=== PATIENT | male | born 1950 | race Caucasian/White ===

== ENCOUNTER → 2016-11-24 | Outpatient (CLI) | payer BC | END | disposition home or self-care (01) | LOC: GMAB 10:46 | PROVIDERS: ATTEND Family Medicine | DX: K76.0 Fatty (change of) liver, not elsewhere classified (principal) ==

== ENCOUNTER → 2018-05-09 | Outpatient (CLI) | payer BC | LOC: GMAE 14:11 | PROVIDERS: ATTEND General Practice | DX: K76.0 Fatty (change of) liver, not elsewhere classified (principal) ==

== ENCOUNTER → 2018-05-12 | Outpatient (CLI) | payer BC, MEDICARE ==
--- NOTE | 2018-05-12 09:26 | US ---
EXAM DESCRIPTION: Aorta CLINICAL HISTORY: 67 years Male, abdominal aortic aneurysm screening. COMPARISON: CT abdomen July 27, 2016 . TECHNIQUE: Multiplanar grayscale and Doppler sonographic images of the abdominal aorta obtained. FINDINGS: The proximal, mid, and distal abdominal aortic diameters measure up to 2.0, 2.3 and 2.1 cm respectively. IMPRESSION: 1. No evidence of abdominal aortic aneurysm. Electronically signed by: Bhupendra Mckenzie MD 05/12/2018 9:24 AM CDT
--- NOTE | 2018-05-12 09:31 | US ---
EXAM DESCRIPTION: Liver CLINICAL HISTORY: 67 years Male, K76.0 COMPARISON: CT abdomen pelvis July 27, 2016. TECHNIQUE: Multiple transverse and longitudinal static sonographic images through the right upper quadrant of the abdomen were obtained. FINDINGS: Visualized portions of the pancreas appear normal. The liver demonstrates mild increased echogenicity with no intrahepatic biliary ductal dilatation. No focal masses are identified sonographically. Focal hypoechoic area near the the caudate lobe likely represents focal fatty sparing. The portal vein is patent. No evidence of ascites. The gallbladder is surgically absent. The common duct is nondilated and measures 0.6 cm. The right kidney measures 10.0 x 5.1 x 5.9 cm.. No hydronephrosis or perinephric fluid collections. IMPRESSION: 1. Mildly increased echogenicity could represent fatty infiltration versus parenchymal liver disease. Focal hypoechoic area near the caudate lobe likely represents focal fatty sparing. No other lesions identified. Electronically signed by: hBupendra Mckenzie MD 05/12/2018 9:30 AM CDT
== END ==
LOC: US 08:00
PROVIDERS: ATTEND Family Medicine
DX: K76.0 Fatty (change of) liver, not elsewhere classified (principal); Z13.89 Encounter for screening for other disorder

== ENCOUNTER → 2018-06-02 | Outpatient (CLI) | payer BC, MEDICARE ==
--- NOTE | 2018-06-02 09:42 | CT ---
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 Multiplanar reconstructions were provided. This exam was performed according to our departmental dose-optimization program, which includes automated exposure control, adjustment of the mA and/or kV according to patient size and/or use of iterative reconstruction technique. FINDINGS: Lungs: Moderate emphysema. Left apical linear and nodular opacity measuring up to 2.5 cm, favored to represent atelectasis/scarring given the morphology but indeterminate. Several additional 2 to 3 mm pulmonary nodules in both lungs. No pleural effusion. Mediastinum: Limited evaluation due to lack of IV contrast. There is a large hiatal hernia. The heart is normal in size. Coronary artery atherosclerosis. The trachea is unremarkable. Lymph nodes: There are no pathologically enlarged lymph nodes by CT size criteria. Chest wall and lower neck: No significant finding. Bones: There is no destructive osseous lesion Upper abdomen: Moderate atherosclerosis in the upper abdominal aorta. Cholecystectomy clips. IMPRESSION: 1. Emphysema with 2.5 cm left apical nodular opacity, indeterminate but favored to represent atelectasis/scarring. PET/CT recommended for definitive characterization. 2. Coronary artery atherosclerosis. 3. Large hiatal hernia. 4. Other findings as above. Electronically signed by: Wagner Elizondo MD 06/02/2018 9:40 AM CDT
--- NOTE | 2018-06-09 10:34 | CT ---
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 Multiplanar reconstructions were provided. This exam was performed according to our departmental dose-optimization program, which includes automated exposure control, adjustment of the mA and/or kV according to patient size and/or use of iterative reconstruction technique. FINDINGS: Lungs: Moderate emphysema. Left apical linear and nodular opacity measuring up to 2.5 cm, favored to represent atelectasis/scarring given the morphology but indeterminate. Several additional 2 to 3 mm pulmonary nodules in both lungs. No pleural effusion. Mediastinum: Limited evaluation due to lack of IV contrast. There is a large hiatal hernia. The heart is normal in size. Coronary artery atherosclerosis. The trachea is unremarkable. Lymph nodes: There are no pathologically enlarged lymph nodes by CT size criteria. Chest wall and lower neck: No significant finding. Bones: There is no destructive osseous lesion Upper abdomen: Moderate atherosclerosis in the upper abdominal aorta. Cholecystectomy clips. IMPRESSION: 1. Emphysema with 2.5 cm left apical nodular opacity, indeterminate but favored to represent atelectasis/scarring. PET/CT recommended for definitive characterization. 2. Coronary artery atherosclerosis. 3. Large hiatal hernia. 4. Other findings as above. Electronically signed by: Wagner Elizondo MD 06/02/2018 9:40 AM CDT
== END ==
LOC: CT 09:00
PROVIDERS: ATTEND Family Medicine
DX: Z87.891 Personal history of nicotine dependence (principal); J43.9 Emphysema, unspecified; I25.10 Atherosclerotic heart disease of native coronary artery without angina pectoris; K44.9 Diaphragmatic hernia without obstruction or gangrene

== ENCOUNTER → 2018-06-07 | Outpatient (CLI) | payer BC, MEDICARE | LOC: GMAE 14:53 | PROVIDERS: ATTEND Family Medicine | DX: Z11.59 Encounter for screening for other viral diseases (principal) ==

== ENCOUNTER → 2018-09-18 | Outpatient (CLI) | payer BC, MEDICARE, OTHER ==
--- NOTE | 2018-09-19 08:43 | CT ---
Procedure: CT LUNG SCREENING Exam Date: 09/18/2017. Ordering Provider: Jorge Rehman Clinical Indication: HX OF TOBACCO USE This patient meets eligibility criteria for low-dose CT lung cancer screening. Comparison: CT low dose screening lung examination 06/02/2018. Technique: Using a multislice scanner, sequential helical axial imaging was obtained in the thorax, 2.5 mm thickness, 2.5 mm separation, from the level of the thoracic inlet through the lung bases without IV contrast. A low dose protocol was utilized: CTDI: 1.75 mGy. 120. kVp. 45 mA. 2D sagittal and coronal reconstructed images, 6.0 mm thickness, were obtained. This exam was performed according to our departmental dose optimization program which includes use of automated exposure control, adjustment of the mA and/or kV according to patient size and/or use of iterative reconstruction technique. Nodule measurements under 10 mm are given as mean value of 3 axes diameters. FINDINGS: Lungs and large airways: Asymmetrically enlarged density in the left apex remains stable at 2.5 cm greatest diameter. More likely to represent pleural thickening than a true pulmonary nodule. Small nodular density in the posterior right apex measures approximately 7 cm stable since the prior study and also more likely to represent apical pleural thickening the MA tube pulmonary nodule. Bilateral pulmonary blebs in a centrilobular pattern are again seen and stable. No new abnormal nodule mass or infiltrate bilaterally. Stable small groundglass densities in the posterior recess of the left lower lobe stable small 3 mm calcified granuloma right lower lobe.. Pleura: Bilateral smaller apical pleural densities are also stable. No new effusion or pneumothorax bilaterally. Mediastinum and gurmeet: evaluation limited by low dose technique and lack of IV contrast. Negative. Heart and great vessels: Atherosclerotic calcifications in the proximal brachiocephalic vessels, aorta, and coronary arteries. Stable soft tissue density anterior to the ascending aorta. Chest wall, lower neck, axillae: Evaluation also limited by same factors as described above. Negative. Upper abdomen: Fatty pancreas. No free fluid or free air in the included peritoneal. Prior cholecystectomy. Abdominal aortic calcifications. Osseous structures: Evaluation limited by low dose MIP technique. Negative. IMPRESSION: 1. Stable bilateral apical pleural thickening and pleural nodular densities larger on the left than right. No new nodules masses or infiltrates bilaterally. Smaller subpleural nodules not clinically significant. [facility] Best Practice guidelines are for one year follow-up. Please see below for Lung RADS category and FOLLOW-UP.* *Lung RADS category CATEGORY 2- Nodules with a very low likelihood (less than 1%) of becoming a clinically active cancer due to size or lack of growth. Nodules: Solid or part solid nodule(s) less than 6mm, new solid nodule less than 4mm. Ground glass nodule(s) less than 20mm or unchanged or slow growing ground glass nodule 20mm or greater. Cat 3 or 4 nodule unchanged for 3 or more months. FOLLOW-UP: Continue annual screening with a Low Dose Chest CT in 12 months for re-evaluation. Electronically signed by: Osmany Stewart MD 09/19/2018 8:41 AM [facility]
== END ==
LOC: CT 07:36
PROVIDERS: ATTEND Family Medicine
DX: Z87.891 Personal history of nicotine dependence (principal); R91.1 Solitary pulmonary nodule

== ENCOUNTER → 2019-09-17 | Outpatient (CLI) | payer BC, MEDICARE | LOC: GMAE 10:59 | PROVIDERS: ATTEND Family Medicine | DX: Z12.5 Encounter for screening for malignant neoplasm of prostate (principal); I10 Essential (primary) hypertension ==

== ENCOUNTER → 2019-09-20 | Outpatient (CLI) | payer BC, MEDICARE ==
--- NOTE | 2019-09-20 15:53 | MRI ---
EXAM DESCRIPTION: Brain w/oContrast CLINICAL HISTORY: unsteadiness on feet COMPARISON: None available TECHNIQUE: Non contrast MRI of the brain is performed according to our usual protocol including multiplanar multi sequence technique. FINDINGS: Sagittal T1 images show intact corpus callosum. Normal pituitary gland with normal T1 appearance of the bucky and medulla and upper cervical cord. Normal signal intensity within the clivus and calvarium. Axial T2 fat sat images reveal preservation of intracranial vascular flow voids. Normal [place] matter T2 signal intensity. Extensive white matter hyperintensities. Normal ventricles with normal gyral and sulcal fold pattern. The globes appear intact and symmetrical. No abnormal fluid signal in the paranasal sinuses, tympanic cavities or mastoid air cells. Axial flair images show multiple punctate foci of increased signal intensity in the subcortical and central white matter both cerebral hemispheres with confluent areas around the ventricles consistent with chronic microvascular ischemic disease related to aging, diabetes or hypertension.. Diffusion weighted images are negative for focal intense increased signal intensity in the brain parenchyma to suggest restricted diffusion. ADC mapping is negative. Axial T1 images show normal [place]-white matter differentiation. No high signal intensity hemorrhagic lesion of the brain parenchyma. No subdural hematoma. Axial susceptibility weighted images are negative for focal signal loss to suggest abnormal brain parenchymal calcification or hemosiderin deposition. IMPRESSION: No acute intracranial pathologic process. Electronically signed by: Yogi Portillo MD 09/20/2019 3:51 PM [facility]
== END ==
LOC: MRI 14:00
PROVIDERS: ATTEND Family Medicine
DX: R26.81 Unsteadiness on feet (principal); R53.83 Other fatigue; M62.81 Muscle weakness (generalized); I10 Essential (primary) hypertension

== ENCOUNTER → 2019-10-19 | Outpatient (CLI) | payer BC, MEDICARE ==
--- NOTE | 2019-10-20 15:36 | CT ---
Procedure: CT LUNG SCREENING Exam Date: 10/19/2019 Ordering Provider: Jorge Rehman Clinical Indication: PERSONAL HISTORY OF TOBACCO USE 14 years smoking cessation. 90 pack years. This patient meets eligibility criteria for low-dose CT lung cancer screening. Comparison: Low-dose CT lung cancer screening examination September 2018. Technique: Using a multislice scanner, sequential helical axial imaging was obtained in the thorax, 2.5 mm thickness, 2.5 mm separation, from the level of the thoracic inlet through the lung bases without IV contrast. A low dose protocol was utilized for BMI less than 30: BMI: 27.9. CTDI: 1.76 mGy. 120. kVp. 45 mA. DLP 65.1 mGy-cm. 2D sagittal and coronal reconstructed images, 6.0 mm thickness, were obtained. This exam was performed according to our departmental dose optimization program which includes use of automated exposure control, adjustment of the mA and/or kV according to patient size and/or use of iterative reconstruction technique. Nodule measurements under 10 mm are given as mean value of 3 axes diameters. FINDINGS: Lungs and large airways: Subpleural nodular densities bilateral apices are stable most likely related to hypertrophic pleural thickening bilaterally. 2.5 cm left apex and 7 mm right apex stable groundglass Bilateral blebs with a centrilobular distribution and more prevalent in the upper lung [place]. Stable groundglass densities and posterior dependent atelectasis left lower more than right. Stable calcified granuloma right lower lobe. Bilateral pleural parenchymal scarring base of the right upper lobe and inferior lingula and bilateral lower lobes. Perihilar peribronchial wall cuffing also stable. No new nodules or new masses. No new infiltrates. Pleura and space: Pleural thickening more prevalent in the bilateral upper lobes and apices. No change. Mediastinum and gurmeet: evaluation limited by low dose technique and lack of IV contrast. Negative and stable. Heart and great vessels: Minimal atherosclerotic calcifications. Chest wall, lower neck, axillae: Evaluation also limited by same factors as described above. Unremarkable. Upper abdomen: Evaluation limited by low-dose technique. Stable moderate-sized hiatal hernia. No free air or free fluid. Included organs are unremarkable. Cholecystectomy with no fluid in the gallbladder fossa. Osseous structures: Evaluation limited by low dose MIP technique. Minimal spondylosis and arthrosis. No lytic or blastic lesions.. IMPRESSION: Stable pleural thickening and emphysematous changes in lung densities. No new nodules or masses.. [facility] Best Practice Recommendations: please see below for Lung RADS category and FOLLOW-UP.* *Lung RADS category CATEGORY 2- Nodules with a very low likelihood (less than 1%) of becoming a clinically active cancer due to size or lack of growth. Nodules: Perifissural nodule(s) < 10 mm. (526mm3). Solid or part solid nodule(s) less than 6mm (113.1 mm3), new solid nodule less than 4mm (33.5 mm3). Ground glass nodule(s) less than 30mm (70770.2 mm3) or unchanged or slow growing ground glass nodule 30mm or greater. Cat 3 or 4 nodule unchanged for 3 or more months. FOLLOW-UP: Continue annual screening with a Low Dose Chest CT in 12 months for re-evaluation. Electronically signed by: Osmany Stewart MD 10/20/2019 3:35 PM [facility]
== END ==
LOC: CT 08:30
PROVIDERS: ATTEND Family Medicine
DX: Z87.891 Personal history of nicotine dependence (principal); J94.8 Other specified pleural conditions; J43.9 Emphysema, unspecified; R91.8 Other nonspecific abnormal finding of lung field

== ENCOUNTER → 2020-01-15 | Outpatient (CLI) | payer OTHER ==
--- NOTE | 2020-01-15 14:18 | RAD ---
EXAM DESCRIPTION: Chest,2 Views CLINICAL HISTORY: 69 years Male, HX OF MALIGNANT NEOPLASM COMPARISON: 11/11/2019. TECHNIQUE: PA and lateral radiographs of the chest were obtained. FINDINGS: Trachea is midline.The cardiomediastinal silhouette is normal in size. The pulmonary vasculature is within normal limits.The lungs are clear with no acute consolidation.No evidence of pleural effusions.No evidence of pneumothorax. IMPRESSION: No acute cardiopulmonary process. Electronically signed by: Edna Thompson MD 01/15/2020 2:16 PM CDT
== END ==
LOC: RAD 13:03
PROVIDERS: ATTEND Otolaryngology
DX: Z85.818 Personal history of malignant neoplasm of other sites of lip, oral cavity, and pharynx (principal)

== ENCOUNTER → 2020-02-11 | Outpatient (CLI) | payer OTHER ==
--- NOTE | 2020-02-12 09:19 | MRI ---
EXAM DESCRIPTION: Brain w/wo Contrast: Magnetic Resonance Imaging. CLINICAL HISTORY: 69 years Male DYSARTHRIA AND ANARTHRIA COMPARISON: MRI scan of the brain without gadolinium contrast September 19. TECHNIQUE: Multiplanar, high-field MRI, multiple conventional sequences, without and with gadolinium IV contrast. No adverse reactions. Multiple axial diffusion sequences. FINDINGS: Stable bilateral foci and regions of hyperintense FLAIR and T2-weighted signal in the periventricular white matter and [place]-white matter junctions of the cerebral hemispheres. . Normal contrast enhancement. No hemorrhage, no cerebral edema, no mass-effect. Normal signal in the bilateral basal ganglia. Normal contrast enhancement. Normal signal in the brainstem and cerebellar hemispheres. Normal contrast enhancement. Concordance of the diffusion and non-diffusion sequences with no evidence of acute or subacute infarction. Cortical sulci, ventricles, and other CSF spaces, and the subdural spaces are normally configured.. No effacement or displacement. No midline shift. No extra-axial hemorrhage. Normal contrast enhancement. Normal flow signal void in the major vessels of the po[place], and the venous sinuses. IACs are symmetric bilaterally. Small pockets of edema or fluid in the left mastoid air cells. No mass effect in the bilateral Cerebellopontine angles. Normal contrast enhancement. Pituitary gland occupies approximately 50% of the sella. Normal contrast enhancement. Base of the cerebellar tonsils is at the level of the foramen magnum. Small polyp or cyst in the anterior left maxillary antrum. Minimal mucoperiosteal thickening in the ethmoid air cells.. The bony calvarium is intact. IMPRESSION: 1. Stable periventricular white matter lesions and subcortical white matter lesions since the prior study with no abnormal enhancement. This indicates these findings are related to cerebral microvascular disease and/or aging, not acute. No abnormal intra-axial or extra-axial mass or enhancement. 2. Normal noncontrast MRI diffusion study indicating no evidence of significant ischemia or acute or subacute infarction. Electronically signed by: Osmany Setwart MD 02/12/2020 9:18 AM CDT
== END ==
LOC: MRI 09:42
PROVIDERS: ATTEND Otolaryngology
DX: Z01.812 Encounter for preprocedural laboratory examination (principal); R47.1 Dysarthria and anarthria; R90.82 White matter disease, unspecified

== ENCOUNTER 2020-05-11 15:40 | Emergency (ER) | payer OTHER ==
--- NOTE | 2020-05-11 17:03 | RAD ---
EXAM DESCRIPTION: Chest,1 View CLINICAL HISTORY: 69 years Male weakness COMPARISON: January 15, 2020 TECHNIQUE: AP view of the chest was obtained. This study is also correlated with the CT scan of the chest dated October 19, 2019. FINDINGS: Cardiac size is within normal limits. Central vessels are not increased. Right paratracheal soft tissue density thought to be related to prominent vasculature unchanged. No infiltrates or effusions seen. No consolidation. No pneumothorax. IMPRESSION: No active disease. Electronically signed by: Nadya Hartley MD 05/11/2020 5:02 PM CDT
--- NOTE | 2020-05-11 17:08 | CT ---
EXAM: CT Head Without Intravenous Contrast CLINICAL HISTORY: The patient is 69 years old and is Male; weakness all over TECHNIQUE: Axial computed tomography images of the head/brain without intravenous contrast. Sagittal and coronal reformatted images were created and reviewed. This CT exam was performed using one or more of the following dose reduction techniques: automated exposure control, adjustment of the mA and/or kV according to patient size, and/or use of iterative reconstruction technique. COMPARISON: No relevant prior studies available. FINDINGS: Brain: Mild age related periventricular white matter microangiopathic changes. No hemorrhage. Ventricles: Unremarkable. No ventriculomegaly. Bones/joints: Unremarkable. No acute skull fracture. Soft tissues: Unremarkable. Sinuses: Unremarkable as visualized. No acute sinusitis. Mastoid air cells: No significant mastoid fluid. IMPRESSION: 1. No acute intracranial findings. No hemorrhage. 2. Mild age related periventricular white matter microangiopathic changes. Electronically signed by: Anny Barbour MD 05/11/2020 5:06 PM CDT
[2020-05-11] MEDS ORDERED: PROMETHAZINE HCL INJ 25 MG in SODIUM CHLORIDE 0.9% 50ML 50 ML IVPB ONE (19:57)
[2020-05-11] MEDS ORDERED: ASPIRIN TABLET 325 MG TAB PO ONE (19:57)
[2020-05-11 20:30] VITALS: TEMP 97
--- NOTE | 2020-05-11 20:44 | ED.PDOC ---
History of Present Illness - General Chief Complaint: General Stated Complaint: Weakness, lethargy and lightheadedness Time Seen by Provider: 05/11/20 15:53 Source: patient Exam Limitations: no limitations - History of Present Illness Initial Comments: The patient is a 69-year-old male presented emergency room secondary to symptoms that apparently started this morning when he woke up but have gotten progressively worse throughout the day. He has had some dizziness and a feeling of generalized weakness. No syncope. No trauma. He has had a history of falls in the past few months. 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 He is followed by Dr. Jane and Dr. Dudley. He denies any history of any significant strokes in the past. The patient is moderately bradycardic with a sinus bradycardia in the high 40s to low 50s upon arrival. Systolic blood pressures are adequate in the 140s to 150s. The patient does get a little bit dizzy with sitting up. The patient does have some continuous nystagmus at rest with a fast beat to the right and a slow beat to the left. It does not seem to be made worse with lying back. When he gets dizzy he does get nauseated. He has thrown up here a couple of times. I am unable to extinguish the nystagmus with either turning of the patient to the right or to the left. The patient is unable to focus on my finger for tracking secondary to the severity of the nystagmus. It appears to be primarily a horizontal nystagmus. Head impulse testing is not useful secondary to severity of the nystagmus as well. No significant vertical skew deviation. Posterior oropharynx shows chronic changes from his previous cancer treatments. He does have chronic dysarthria. He seems to move all of his extremities well. Strength and sensation appear to be actually around baseline. He is a little unsteady on his feet. The patient seems to become most nauseated with trying to focus on my nose or my finger during the exam. This seems to cause more nausea than turning of the head. Tympanic membranes show no overt infection, there is possibly some mild increased pressure. Timing/Duration: other - Around 10 hours by the time he arrived here. He did essentially wake up with the symptoms though they did get progressively worse through the day Improving Factors: immobilization Worsening Factors: movement Associated Symptoms: malaise, nausea/vomiting Allergies/Adverse Reactions: Allergies NO KNOWN ALLERGY Allergy (Verified 05/11/20 16:16) Home Medications: Ambulatory Orders Acetaminophen W/ Codeine [Tylenol W/ CODEINE #3] 1 mg PO PRN 03/21/16 Docusate Sodium [Healthy Mama Move It Misha] 100 mg PO PRN 03/21/16 Lorazepam [Ativan] 1 mg PO PRN 03/21/16 Ondansetron HCl [Zofran] 4 mg PO PRN 03/21/16 Tramadol HCl 50 mg PO Q6H PRN 03/21/16 tiZANidine [Zanaflex] 4 mg PO BEDTIME 03/21/16 Esomeprazole Magnesium [Nexium] 20 mg PO DAILY 04/21/16 Ipratropium Clarion Hfa [Atrovent Hfa] 17 mcg IN Q6H 15 Days aer 11/11/19 Prednisone 50 mg PO DAILY #5 tab 11/11/19 Review of Systems - Review of Systems Constitutional: States: malaise, weakness - Generalized EENTM: States: no symptoms reported - Chronic changes Respiratory: States: no symptoms reported Cardiology: States: no symptoms reported Gastrointestinal/Abdominal: States: nausea, vomiting Genitourinary: States: no symptoms reported Musculoskeletal: States: no symptoms reported Skin: States: no symptoms reported Neurological: States: headache - Very mild currently, other - See above Endocrine: States: no symptoms reported All other Systems: No Change from Baseline Past Medical History (General) - Patient Medical History Hx Seizures: No Hx Stroke: No Hx Dementia: No Hx Asthma: No Hx of COPD: Yes Hx Cardiac Disorders: Yes Hx Congestive Heart Failure: No Hx Pacemaker: No Hx Hypertension: Yes Hx Thyroid Disease: No Hx Diabetes: No Hx Gastroesophageal Reflux: Yes Hx Renal Disease: No Hx Cancer: Yes - Throat Hx of HIV: No Hx Hepatitis C: No Hx MRSA: No Surgical History: cancer surgery - Vaccination History Hx Tetanus, Diphtheria Vaccination: Yes Hx Influenza Vaccination: Yes Hx Pneumococcal Vaccination: Yes - Social History Hx Tobacco Use: Yes Hx Chewing Tobacco Use: No Hx Alcohol Use: No Hx Substance Use: No Hx Substance Use Treatment: No Hx Depression: No Hx Physical Abuse: No Hx Emotional Abuse: No Hx Suspected Abuse: No - Female History Patient is a Female of Child Bearing Age (10 -59 yrs old): No Patient : No Family Medical History - Family History Father Living Status: Hx Family Hypertension: Yes Hx Family Cancer: Yes - Brain Mother Living Status: Hx Cardiac Disease: Yes Hx Family Diabetes: Yes Physical Exam - Physical Exam General Appearance: Alert, Other - The patient prefers to lay still Eye Exam: bilateral other - See history of present illness Ears, Nose, Throat: hearing grossly normal - Mildly chronically decreased bilaterally, normal pharynx - Chronic changes related to his tonsillar cancer Neck: other - Mild chronic changes from previous cancer Respiratory: lungs clear, normal breath sounds, no respiratory distress, no accessory muscle use Cardiovascular/Chest: normal peripheral pulses, no edema, bradycardia - Sinus bradycardia Peripheral Pulses: radial,right: 2+, radial,left: 2+ Gastrointestinal/Abdominal: non tender - Obese, soft Rectal Exam: deferred Extremity: normal range of motion, no pedal edema, no calf tenderness, normal capillary refill Neurologic: alert, normal mood/affect - He is pleasant and cooperative, other - See history of present illness. He does have chronic dysarthria. Skin Exam: normal color Comments: Vital Signs - 24 hr 05/11/20 05/11/20 05/11/20 15:45 15:57 16:53 Temperature 97 F L Pulse Rate [ 48 L 48 L 49 L Pulse ox] Respiratory 16 16 Rate Blood Pressure 156/81 143/73 [L arm] O2 Sat by Pulse 94 L Oximetry 05/11/20 05/11/20 05/11/20 16:54 16:55 17:21 Temperature Pulse Rate [ 53 L 59 L 46 L Pulse ox] Respiratory 20 22 Rate Blood Pressure 147/77 154/76 147/78 [L arm] O2 Sat by Pulse 96 96 97 Oximetry 05/11/20 05/11/20 19:16 20:28 Temperature 97.0 F L Pulse Rate [ 48 L 54 L Pulse ox] Respiratory 22 18 Rate Blood Pressure 142/79 157/81 [L arm] O2 Sat by Pulse 93 L 94 L Oximetry Progress - Progress Progress: 05/11/20 20:48 The patient is a 69-year-old male presented emergency room secondary to symptoms of dizziness and weakness since this morning but have progressively gotten worse. The patient does have significantly abnormal nystagmus. The concern is high for a possible cerebellar stroke. The patient is well out of the range for possible thrombolyzes. He has received a dose of aspirin. CT scan of the head without contrast showed no obvious acute pathology. He is also receiving Phenergan for the nausea and vomiting. The patient does already have a history with the ENT doctors of Dr. Jane and Dr. Reyes. We are transferring for specialty evaluation. The patient does have some sinus b radycardia which may be related to the metoprolol that he takes but may also be related to the current symptomatology. Acceptance of transfer is appreciated. nehemiah price [phone] - Results/Orders Results/Orders: EKG shows sinus bradycardia at 49 bpm. Normal axis. Normal R wave progression. No ST segment or T wave changes indicative of acute ischemia. Normal QT interval. Head CT shows no acute intracranial pathology. Chest x-ray shows no acute pathology. See report for details. Laboratory Tests 05/11/20 05/11/20 05/11/20 16:09 16:09 16:09 WBC 6.1 RBC 5.18 Hgb 14.4 Hct 42.2 MCV 81.4 MCH 27.8 MCHC 34.1 RDW 16.3 H Plt Count 159 MPV 8.7 Absolute Neuts (auto) 3.90 Absolute Lymphs (auto) 1.60 Absolute Monos (auto) 0.50 Absolute Eos (auto) 0.10 Absolute Basos (auto) 0.10 Neutrophils % 63.7 Lymphocytes % 26.6 Monocytes % 7.4 Eosinophils % 1.3 Basophils % 1.0 Sodium 140 Potassium 3.6 Chloride 107 Carbon Dioxide 24 Anion Gap 12.6 BUN 12 Creatinine 1.00 BUN/Creatinine Ratio 12.0 Random Glucose 105 Serum Osmolality 279.5 Lactic Acid 1.4 Calcium 8.6 Magnesium Total Bilirubin 0.9 AST 18 ALT 16 Alkaline Phosphatase 46 Creatine Kinase 67 CK-MB (CK-2) 1.3 CK-MB (CK-2) % Not Reportable Troponin I < 0.02 B-Natriuretic Peptide < 15.0 Serum Total Protein 6.9 Albumin 4.0 Globulin 2.9 Albumin/Globulin Ratio 1.4 TSH Urine Color Urine Appearance Urine pH Ur Specific Mead Urine Protein Urine Glucose (UA) Urine Ketones Urine Blood Urine Nitrite Urine Bilirubin Urine Urobilinogen Ur Leukocyte Esterase Urine RBC Urine WBC Ur Epithelial Cells Urine Bacteria 05/11/20 05/11/20 16:09 19:43 WBC RBC Hgb Hct MCV MCH MCHC RDW Plt Count MPV Absolute Neuts (auto) Absolute Lymphs (auto) Absolute Monos (auto) Absolute Eos (auto) Absolute Basos (auto) Neutrophils % Lymphocytes % Monocytes % Eosinophils % Basophils % Sodium Potassium Chloride Carbon Dioxide Anion Gap BUN Creatinine BUN/Creatinine Ratio Random Glucose Serum Osmolality Lactic Acid Calcium Magnesium 2.0 Total Bilirubin AST ALT Alkaline Phosphatase Creatine Kinase CK-MB (CK-2) CK-MB (CK-2) % Troponin I B-Natriuretic Peptide Serum Total Protein Albumin Globulin Albumin/Globulin Ratio TSH 0.58 Urine Color Yellow Urine Appearance Clear Urine pH 7.0 Ur Specific Mead 1.025 Urine Protein Negative Urine Glucose (UA) Negative Urine Ketones 80 H Urine Blood Trace-intact H Urine Nitrite Negative Urine Bilirubin Negative Urine Urobilinogen 1.0 Ur Leukocyte Esterase Negative Urine RBC 0-1 Urine WBC 0-1 Ur Epithelial Cells 0 Urine Bacteria 0 - EKG/XRAY/CT CT Ordered: Yes Departure - Departure Clinical Impression: Vertigo, Sinus bradycardia Disposition: Transfer to Hospital Departure Forms: ED Discharge - Pt. Copy, Patient Portal Self Enrollment Referrals: KIM JORDAN MD [Primary Care Provider] - 1-2 Weeks Home Medications: Ambulatory Orders Acetaminophen W/ Codeine [Tylenol W/ CODEINE #3] 1 mg PO PRN 03/21/16 Docusate Sodium [Healthy Mama Move It Misha] 100 mg PO PRN 03/21/16 Lorazepam [Ativan] 1 mg PO PRN 03/21/16 Ondansetron HCl [Zofran] 4 mg PO PRN 03/21/16 Tramadol HCl 50 mg PO Q6H PRN 03/21/16 tiZANidine [Zanaflex] 4 mg PO BEDTIME 03/21/16 Esomeprazole Magnesium [Nexium] 20 mg PO DAILY 04/21/16 Ipratropium Clarion Hfa [Atrovent Hfa] 17 mcg IN Q6H 15 Days aer 11/11/19 Prednisone 50 mg PO DAILY #5 tab 11/11/19 Transfer to Outside Facility - Transfer Information Decision to Transfer Date: 05/11/20 Decision to Transfer Time: 20:52 Reason for Transfer: required specialist not available Accepting Provider:: sanket gardner/alexis Accepting Facility: [facility]
[2020-05-11 20:53] VITALS: BP 148/74; O2SAT 93
== END 2020-05-11 21:20 | disposition short-term general hospital (02) ==
LOC: ER 15:40
DX: R42 Dizziness and giddiness (principal); R00.1 Bradycardia, unspecified; R53.1 Weakness; R11.2 Nausea with vomiting, unspecified; R53.81 Other malaise; K21.9 Gastro-esophageal reflux disease without esophagitis; J44.9 Chronic obstructive pulmonary disease, unspecified; I51.9 Heart disease, unspecified; I10 Essential (primary) hypertension; Z85.818 Personal history of malignant neoplasm of other sites of lip, oral cavity, and pharynx; Z87.891 Personal history of nicotine dependence; Z79.899 Other long term (current) drug therapy; Z91.81 History of falling
CPT/HCPCS: 36415; 36416; 70450; 71045; 80053; 81001; 82550; 82553; 83605; 83735; 83880; 84443; 84484; 85025; 87635; 93005; A4216; J2550

== ENCOUNTER → 2020-10-20 | Outpatient (CLI) | payer OTHER ==
--- NOTE | 2020-10-20 15:53 | CT ---
Procedure: CT LUNG SCREENING Exam Date: October 20, 2020. Ordering Provider: Jorge Rehman Clinical Indication: Former cigarette smoker smoking cessation x17 years. This patient meets eligibility criteria for low-dose CT lung cancer screening. Comparison: Low-dose CT lung cancer screening examination October 2019, September 2018, and May 2018. Technique: Using a multislice scanner, sequential helical axial imaging was obtained in the thorax, 2.5 mm thickness, 2.5 mm separation, from the level of the thoracic inlet through the lung bases without IV contrast. A low dose protocol was utilized for BMI less than 30: BMI: 28. CTDI: 1.76 mGy. 120. kVp. 45 mA. DLP 76 mGy-cm. 2D sagittal and coronal reconstructed images, 6 mm thickness, were obtained. This exam was performed according to our departmental dose optimization program which includes use of automated exposure control, adjustment of the mA and/or kV according to patient size and/or use of iterative reconstruction technique. Nodule measurements under 10 mm are given as mean value of 3 axes diameters. FINDINGS: Lungs and large airways: Bilateral mammograms in a centrilobular distribution predominantly in the upper lung [place]. Stable nodule most likely related to pleural thickening posterior right apex with larger similar-appearing nodular pleural thickening on the left. Pleural-parenchymal scarring inferior lingula stable. No abnormal nodules and no mass. No focal or interval development of infiltrate. Pleura and space: Stable bilateral compartment thickening with occasional alcohol regions of thickening. No acute process. Mediastinum and gurmeet: evaluation limited by low dose technique and lack of IV contrast. Small nodes stable since the prior study with no dominant soft tissue mass. Stable large gastric hiatal hernia inferior mediastinum. Radiodense fluid/food in the lumen. Heart and great vessels: Atherosclerotic calcification in the aortic arch, brachiocephalic vessels, and coronary arteries. Chest wall, lower neck, axillae: Evaluation also limited by same factors as described above. Stable axillary and subclavian nodes. Upper abdomen: Evaluation limited by low-dose technique. Surgical clips gallbladder fossa with no fluid. Stable size and density of the spleen and adrenal glands. Atherosclerotic changes in the included aorta. Osseous structures: Evaluation limited by low dose MIP technique. Unremarkable. IMPRESSION: Stable nodular densities associated with the pleura in the bilateral apices. Bilateral centrilobular emphysematous changes more prominent in the upper lung [place] and stable. No normal nodules and no mass. No acute infiltrate. [facility] Best Practice Recommendations: please see below for Lung RADS category and FOLLOW-UP.* *Lung RADS category Category 1 - No nodule or definitely benign nodules (probability of malignancy less than 1%). Follow-up: Continue annual screening with Low Dose Chest CT in 12 months. Electronically signed by: Osmany Stewart MD 10/20/2020 3:51 PM [facility]
== END ==
LOC: CT 09:59
PROVIDERS: ATTEND Family Medicine
DX: R91.8 Other nonspecific abnormal finding of lung field (principal); J43.9 Emphysema, unspecified; Z87.891 Personal history of nicotine dependence; Z12.2 Encounter for screening for malignant neoplasm of respiratory organs